=== PATIENT | male | born 1940 | race Caucasian/White ===

== ENCOUNTER → 2019-12-13 14:31 | Outpatient (BNVA) | payer MEDICARE, SELFPAY | PROVIDERS: PCP Internal Medicine; Visit Provider Urology | DX: R97.20 Elevated prostate specific antigen [PSA] (principal) | CPT/HCPCS: 99213 ==

== ENCOUNTER → 2020-12-26 09:11 | Outpatient (BNVA) | payer MEDICARE, SELFPAY | PROVIDERS: Visit Provider Urology | DX: R97.20 Elevated prostate specific antigen [PSA] (principal) | CPT/HCPCS: Q3014 ==

== ENCOUNTER → 2022-01-08 08:34 | Outpatient (BNVA) | payer MEDICARE, SELFPAY | PROVIDERS: PCP Internal Medicine; Visit Provider Urology | DX: R97.20 Elevated prostate specific antigen [PSA] (principal); I10 Essential (primary) hypertension | CPT/HCPCS: 99212 ==

== ENCOUNTER 2022-12-31 09:15 | Outpatient (AMB) | payer MEDICARE, SELFPAY ==
--- NOTE | 2022-12-31 09:20 | A.OFFVIS_ITS ---
Intake Intake Visit Reasons: 1yr PSA(set) Intake Note: Patient is Present for Follow Up Urology Medication: None Antibiotic Allergies: None Blood Thinners: Aspirin Pharmacy: [facility] Allergies shellfish Allergy (Unknown, Uncoded 12/31/22 09:24) hives Medication List - Last Reconciled 12/31/22 by Nathen Manrique MD aspirin 81 mg PO DAILY diltiazem HCl ER (Tiadylt ER) 360 mg PO DAILY finasteride 5 mg PO DAILY 90 days lisinopril 20 mg PO DAILY HPI HPI Comments History of Present Illness Details Harjinder is a pleasant male. He is seen for the following urologic condition - elevated PSA Rise in PSA to 8.7 No change in urinary symptoms Has previously had high PSA EMANI normal Start finasteride with repeat in 6 months Elevated PSA Historically PSA has run in the 4 to 6 range Discussed current PSA lower than previously Reinforced conditions under which PSA is optimized Continue to follow yearly with repeat PSA PSA 11/24 5.4 % 9.7, 12/25 3.4, 12/26 3.9, 12/27 8.7 13% Therapeutic plan follow-up 12 months PSA repeat [facility] Medical History HTN (hypertension) Family History Mother HTN (hypertension) Father Stroke Social History Alcohol intake: never Patient Tobacco Use Status: Current everyday Tobacco user Cigarettes Per Day: 8 Years Smoked: 55 Review of Systems Const Denies chills and Denies fever(s) Card Reports no additional complaints and Denies syncope Resp Denies cough GI Denies abdominal pain and Denies heartburn Reports as per HPI and Denies change in libido Neuro Denies syncope Psych Denies change in libido Endo Denies change in libido Physical Exam Const General: cooperative, healthy appearing, comfortable and no acute distress Orientation/consciousness: patient oriented x3 HEENT Face and sinus: Yes normal facial exam Mouth: moist mucous membranes Neck Neck: Yes normal visual inspection, Yes full ROM and Yes trachea midline Chest Chest palpation & inspection: normal inspection of the chest Resp Effort & Inspection: normal respiratory effort, able to speak in complete sentences and no respiratory distress GI Inspection: Yes normal to inspection Rectal Exam - Male: Yes normal sphincter tone and Yes prostate normal Male General Exam: Yes normal external exam Penis: normal penis and circumcised Meatus: meatus normal Scrotum: scrotum normal Testes: Testes normal Back/Spine/Pelvis Cervical Spine: normal cervical lordosis Thoracic/Lumbar Spine: thoracic and lumbar spine normal to inspection Skin General skin exam: no rashes or lesions noted Neuro General: patient oriented x3, gait normal, tone normal and moves all extremities Extrem General: Yes normal to inspection and Yes capillary refill normal Assessment & Plan Assessment & Plan (1) Elevated PSA: Code(s): R97.20 - Elevated prostate specific antigen [PSA] Plan Start finasteride Orders: Orders PSA,Total (Free>4and<10) 07/31/23 R97.20 - Elevated prostate specific antigen [PSA] Medications: New finasteride 5 mg PO DAILY 90 tabs 2RF 90 days R97.20 - Elevated prostate specific antigen [PSA] Patient Instructions: Imaging studies, laboratory and physical exam results were discussed and reviewed in detail. No major barriers to patient understanding were identified. An opportunity to ask questions regarding the treatment plan was provided. All questions were answered. The patient expressed understanding and agreement with the above treatment plan. The patient is aware they should contact our office by phone for worsening of their current condition or the appearance of new urologic symptoms. Compliance is encouraged with any medications and followup testing that is ordered. It is a privilege to participate in the urologic care of your patient. If you have any questions or concerns regarding treatment for the above conditions, or other urologic issues, please do not hesitate to contact me. The office telephone contact is [phone]. This note is constructed using voice recognition software. While every effort has been made to ensure accuracy manager customer service errors may have been included. Yours sincerely, Dr Nathen Manrique MD, [facility] - Urology Providers of Expert, Compassionate Care for the Genitourinary System Coding Level of Care Code Est Pt Level 4 (43898) Diagnoses Elevated PSA R97.20
== END 2022-12-31 09:55 | disposition home or self-care (01) ==
PROVIDERS: Visit Provider Urology
DX: R97.20 Elevated prostate specific antigen [PSA] (principal)
CPT/HCPCS: 99214

== ENCOUNTER → 2022-12-31 09:15 | Outpatient (BNVA) | payer MEDICARE, SELFPAY | PROVIDERS: Visit Provider Urology | DX: R97.20 Elevated prostate specific antigen [PSA] (principal) | CPT/HCPCS: 99212 ==

== ENCOUNTER 2023-11-09 15:33 | Outpatient (AMB) | payer MEDICARE, SELFPAY ==
--- NOTE | 2023-11-09 15:42 | A.OFFVIS_ITS ---
Intake Visit Reasons: Elevaed PSA Follow Up-(set) Intake Note: Patient is Present for Elevated PSA Urology Medication: Finasteride Antibiotic Allergies: None Blood Thinners: Aspirin Pharmacy: [facility] Required: No Allergies shellfish Allergy (Unknown, Uncoded 11/09/23 15:46) Hives HPI Comments Details: Harjinder is a pleasant male. He is seen for the following urologic condition - elevated PSA PSA down to 2.9 on finasteride Six-month follow-up repeat PSA tele Elevated PSA Historically PSA has run in the 4 to 6 range Discussed current PSA lower than previously Reinforced conditions under which PSA is optimized Continue to follow yearly with repeat PSA PSA 11/24 5.4 % 9.7, 12/25 3.4, 12/26 3.9, 12/27 8.7 13%, 09/27 2.9 Therapeutic plan follow-up 12 months PSA repeat [facility] Medical History HTN (hypertension) Family History Mother HTN (hypertension) Father Stroke Social History Alcohol intake: never Patient Tobacco Use Status: Current everyday Tobacco user Cigarettes Per Day: 8 Years Smoked: 55 Review of Systems Const Denies chills and Denies fever(s) Card Reports no additional complaints and Denies syncope Resp Denies cough GI Denies abdominal pain and Denies heartburn Reports as per HPI and Denies change in libido Neuro Denies syncope Psych Denies change in libido Endo Denies change in libido Physical Exam Const General: cooperative, healthy appearing, comfortable and no acute distress Orientation/consciousness: patient oriented x3 HEENT Face and sinus: Yes normal facial exam Mouth: moist mucous membranes Neck Neck: Yes normal visual inspection, Yes full ROM and Yes trachea midline Chest Chest palpation & inspection: normal inspection of the chest Resp Effort & Inspection: normal respiratory effort, able to speak in complete sentences and no respiratory distress GI Inspection: Yes normal to inspection Back/Spine/Pelvis Cervical Spine: normal cervical lordosis Thoracic/Lumbar Spine: thoracic and lumbar spine normal to inspection Skin General skin exam: no rashes or lesions noted Neuro General: patient oriented x3, gait normal, tone normal and moves all extremities Extrem General: Yes normal to inspection and Yes capillary refill normal Assessment & Plan Assessment & Plan (1) Elevated PSA: Code(s): R97.20 - Elevated prostate specific antigen [PSA] Category: Medical Plan Six-month follow-up PSA tele Orders: Orders Prostate Specific Antigen 6 Months R97.20 - Elevated prostate specific antigen [PSA] Patient Instructions: Imaging studies, laboratory and physical exam results were discussed and reviewed in detail. No major barriers to patient understanding were identified. An opportunity to ask questions regarding the treatment plan was provided. All questions were answered. The patient expressed understanding and agreement with the above treatment plan. The patient is aware they should contact our office by phone for worsening of their current condition or the appearance of new urologic symptoms. Compliance is encouraged with any medications and followup testing that is ordered. It is a privilege to participate in the urologic care of your patient. If you have any questions or concerns regarding treatment for the above conditions, or other urologic issues, please do not hesitate to contact me. The office telephone contact is [phone]. This note is constructed using voice recognition software. While every effort has been made to ensure accuracy air carrier operations inspector errors may have been included. Yours sincerely, Dr Nathen Manrique MD, [facility] - Urology Providers of Expert, Compassionate Care for the Genitourinary System Coding Level of Care Code Est Pt Level 3 (16242) Diagnoses Elevated PSA R97.20
== END 2023-11-09 16:25 | disposition home or self-care (01) ==
PROVIDERS: PCP Internal Medicine; Visit Provider Urology
DX: R97.20 Elevated prostate specific antigen [PSA] (principal)
CPT/HCPCS: 99213

== ENCOUNTER → 2023-11-09 15:33 | Outpatient (BNVA) | payer MEDICARE, SELFPAY | PROVIDERS: PCP Internal Medicine; Visit Provider Urology | DX: R97.20 Elevated prostate specific antigen [PSA] (principal) | CPT/HCPCS: 99212 ==

== ENCOUNTER 2024-06-26 10:15 | Outpatient (AMB) | payer MEDICARE, SELFPAY ==
--- NOTE | 2024-06-26 10:16 | MHC.OFFVIS ---
Intake Visit Reasons: 6M PSA(set) Intake Note: Harjinder 84 yr old male presents today for his appointment via video call for his 6 month follow up S/P PSA. Allergies shellfish Allergy (Unknown, Uncoded 11/09/23 15:46) Hives HPI Comments Details: Harjinder is a pleasant male. He is a patient of Dr. May. He is seen for the following urologic condition - elevated PSA Telemedicine Evaluation 15 min Consultation D[facility] Video PSA fallen further to 1.7 Stability Twelve month follow-up Elevated PSA Historically PSA has run in the 4 to 6 range Discussed current PSA lower than previously Reinforced conditions under which PSA is optimized Continue to follow yearly with repeat PSA PSA 11/24 5.4 % 9.7, 12/25 3.4, 12/26 3.9, 12/27 8.7 13%, 09/27 2.9, 05/01 1.7 Therapeutic plan follow-up 12 months PSA repeat [facility] Medical History HTN (hypertension) Family History Mother HTN (hypertension) Father Stroke Social History Alcohol intake: never Patient Tobacco Use Status: Current everyday Tobacco user Cigarettes Per Day: 8 Years Smoked: 55 Review of Systems Const All systems reviewed & are unremarkable except as noted in HPI and below Reports no additional complaints Resp Reports no additional complaints GI Reports no additional complaints Reports as per HPI Musc Reports no additional complaints Physical Exam Telemedicine evaluation Appropriate responses Regular breathing rate and rhythm HEENT Head: Yes normal to inspection Ears: hearing grossly normal bilaterally Eyes General: appearance normal, both eyes and all related structures Neck Neck: Yes normal visual inspection Chest Chest palpation & inspection: normal inspection of the chest Resp Effort & Inspection: normal respiratory effort and able to speak in complete sentences Telehealth Telehealth Telehealth Platform: [employer] Location of provider rendering services: practice address Location of patient: address on file Patient Identification confirmed using: Name, : Yes Telehealth method: video Patient verbally consented to treatment: Yes Patient verbally consented to billing insurance company: Yes Patient informed of any privacy concerns related to visit: Yes Minutes spent on Phone/Video with Pt.: 15 Assessment & Plan Assessment & Plan (1) Elevated PSA: Code(s): R97.20 - Elevated prostate specific antigen [PSA] Category: Medical (2) Nocturia more than twice per night: Code(s): R35.1 - Nocturia Category: Medical (3) Weak urinary stream: Code(s): R39.12 - Poor urinary stream Category: Medical Plan Twelve month follow-up PSA and PVR Orders: Orders Prostate Specific Antigen 12 Months R35.1 - Nocturia Medications: Refilled finasteride 5 mg PO DAILY 90 days 90 tabs 3RF R97.20 - Elevated prostate specific antigen [PSA] Patient Instructions: This note is constructed using voice recognition software. While every effort has been made to ensure accuracy associate professor of automation errors may have been included. Imaging studies, laboratory and physical exam results were discussed and reviewed in detail. No major barriers to patient understanding were identified. An opportunity to ask questions regarding the treatment plan was provided. All questions were answered. The patient expressed understanding and agreement with the above treatment plan. The patient is aware they should contact our office by phone for worsening of their current condition or the appearance of new urologic symptoms. Compliance is encouraged with any medications and followup testing that is ordered. It is a privilege to participate in the urologic care of your patient. If you have any questions or concerns regarding treatment for the above conditions, or other urologic issues, please do not hesitate to contact me. The office telephone contact is [phone]. Sincerely, Dr Nathen Manrique MD, [facility] - Urology Compassionate Specialist Care for the Genitourinary System Coding Level of Care Code Tele Est Pt Level 3 (41299) Complex EM visit Add On G2211 Diagnoses Elevated PSA R97.20 Nocturia more than twice per night R35.1 Weak urinary stream R39.12
--- OUTSIDE RECORDS SUMMARY | 2024-06-26 11:47 | XMS_ITS | Data Portability ---
Author Organization [place] - [facility] Address [address] [place] [id number] Care Team Providers Care Head Of Human Resources Name Role Phone LEIDA, SANJEBHAVANI Primary Care Provider Assessment No assessment recorded. Plan of Treatment Reminders Order Date Submit Date Provider Last Modified By Organization Details Last Modified Time Details Appointments None recorded. Lab None recorded. Referral None recorded. Procedures None recorded. Surgeries None recorded. Imaging XR, cervical spine, 4 or 5 view 2023 [address] [address], [address] [place] [address], [phone], 4 14:53:54 XR, hand, 3 or more view 2023 [address] [address], [address] [place] [address], [phone], 14:53:54 Medication Orders None recorded. Patient TargetsNo targets recorded. Patient InstructionsNo instructions recorded. Reason for Referral None Reported. Results Created Date Observation Date Name Description Value Unit Range Abnormal Flag Note LastModifiedBy Organization Detail LastModifiedTime 05/30/19 24 XR, hand, 3 or more view No observ ation record ed. [address] [place] [address], [phone], 05/30/2023 14:01:43 05/30/19 24 XR, cervi benita spine , 4 or 5 view No observ ation record ed. [address] [address] [address], [place], [address], 05/30/2023 14:21:33 Result Notes None recorded. Problems No Known Problems Procedures Surgical History Date Name Laterality Status Provider Name and Address Organization Details Recorded Time APutman CTS Right completed Yasmeen Hartman [place] - [facility] 06/16/2023 11:23:49 Imaging Results Imaging Date Name Status LastModified by Organiz ation Details LastModified Time 05/30/2023 XR, hand, 3 or more view completed [address] [address] [address], [place], [address], 05/30/2023 14:01:43 05/30/2023 XR, cervical spine, 4 or 5 view completed [address] [address] [address], [place], [address], 05/30/2023 14:21:33 Procedure Notes None recorded. Medical Equipment None Reported. Allergies Allergen ID Allergen Name Allergen Category Reaction Reaction Severity Criticality Documentation Date Start Date Code Code System Note Provider Name and Address Organization Details Recorded Time 251199 shellfish derived food,medi cation hives moderate Not available 04/05/2023 11802 UNK Not Available Not Available Not Available Medications Name Sig Start Date Stop Date Status Note LastModified by Organization Details LastModified Time tramadol 50 mg tablet TAKE 1 TABLET BY MOUTH EVERY 6 HOURS NEEDED active Not Available Not Available No t Available methylpredni solone 4 mg tablets in a dose pack FOLLOW PACKAGE DIRECTIONS active Not Available Not Available N ot Available ondansetron 4 mg disintegrati ng tablet DISSOLVE 1 TABLET ON THE TONGUE EVERY 6 HOURS NEEDED FOR NAUSEA active Not Available Not Available No t Available finasteride active Not Available Not A vailable Not Available amlodipine active Not Available Not Av ailable Not Available methylpredni solone active Not Available Not Available Not Available lisinopril active Not Available Not Av ailable Not Available Vitals None Recorded Social History Question Answer Notes LastModified by Organizat ion Details LastModified Time Tobacco Smoking Status Current Every Day Smoker Roxi kenny, [place] - [facility] 06/16/2023 11:03:51 Do You Have An Advance Directive? Yes Information not available 06/16/2023 What Is Your Level Of Alcohol Consumption? None Information not available 06/16/2023 Is Blood Transfusion Acceptable In An Emergency? Yes Information not available 06/16/2023 How Much Tobacco Do You Chew? None Information not available 06/16/2023 In The 14 Days Before Symptom Onset, Have You Had Close Contact With A Laboratory-confir med COVID-19 While That Case Was Ill? No Information not available 06/16/2023 In The 14 Days Before Symptom Onset, Have You Had Close Contact With A Person Who Is Under Investigation For COVID-19 While That Person Was Ill? No Information not available 06/16/2023 Have You Been To An Area Known To Be High Risk For COVID-19? No Information not available 06/16/2023 Do You Or Have You Ever Used E-cigarettes Or Vape? 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 No Information not available 06/16/2023 Have You Been Diagnosed With Vitamin D Or Calcium Deficiency? No Information not available 06/16/2023 Have You Used Antacids Continuously For More Than 6 Months? No Information not available 06/16/2023 Have You Used Steroids Daily For More Than 3 Months? No Information not available 06/16/2023 Do You Have A Medical Power Of [place]? Yes Information not available 06/16/2023 At What Age Did You Start Smoking Tobacco? 20 Information not available 06/16/2023 Do You Or Have You Ever Used Smokeless Tobacco? Never Used Smokeless Tobacco Information not available 06/16/2023 How Much Tobacco Do You Smoke? 0.25 PPD Information not available 06/16/2023 What Types Of Sporting Activities Do You Participate In? Golf Information not available 06/16/2023 Sex: Unknown Functional Status Question Answer Note LastModified by Organization D etails LastModified Time What is your exercise level? Moderate Information not available 06/16/2023 Mental Status None recorded. Family History Nothing Reported. Medical History Condition Response Arthritis Y Past Encounters Encounter ID Performer Location Encounter Start Date Encounter Closed Date Diagnosis/Indication Diagnosis SNOMED-CT Code Diagnosis ICD10 Code Diagnosis Note [id number] Bird Wu MD [address] [address] [place] [address] 04/05/2023 10:30:06 04/05/2023 11:15:49 Carpal tunnel syndrome 43108945 G56.01 Rt carpal tunnel syndrome.P t c/o numbness/t ingling in Rt MF & RF at night for ~1.5 wks. He states the pain will wake him up at night, but will resolve after standing and walking around. Pt reports seeing an outside provider who prescribed a Medrol dose pack for his symptoms 04/02/2023 . Pt states his symptoms have significan tly improved since taking the Medrol. He denies any numbness/t ingling at this time. Discussed treatment options ranging from nonoperati ve to operative and the risks/bene fits of each approach. We discussed bracing, medication s, injections , and carpal tunnel release.Af ter this discussion , the patient chose to proceed with conservati ve tx, including bracing x3 wks d/t improvemen t of symptoms at this time. Will consider a Rt CTS injection in the future if symptoms return.Pt shown a Rt wrist brace in office today.F/u prn. 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 Osteoarthr osis of the carpometacarpal joint of the thumb 64915926 M18.9 Carpal agustin miguel a syndrome 23592198 G56.01 Rt carpal tunnel syndrome.P t c/o numbness in his Rt hand during the day but it's worse at night, he states his hand will get very warm/throb and it'll wake him up numerous times during the night. Pt has been bracing for the past two months. Pt reports seeing an outside provider who prescribed a Medrol dose pack for his symptoms 04/02/2023 with great relief. Pt denies neck pain, and symptoms in his Lt hand or in feet.Pt taking meloxicam. Pt had two cervical herniated discs x20 years ago, couldn't use his Rt arm at the time but discs have atrophied since.Pro mmended an EMG and CTS injection vs referral to mental health program specialist for further tx/dx purposes to eval for cervical entrapment neuropathy . Pt reluctant to proceed w/ EMG d/t poor experience in the past with EMG.Discus sed treatment options ranging from nonoperati ve to operative and the risks/bene fits of each approach. We discussed bracing, medication s, injections , and carpal tunnel release.Af ter this discussion , the patient chose to proceed w/ considerin g his options and calling back with a decision.F /u prn. 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 M19.041 Neck pain 17848860 M54.2 XR results reveal C5-C6 DJD [id number] Bird Wu MD [place] [address] [facility] [place], [facility] [place] [address] 06/16/2023 10:59:03 06/16/2023 11:28:01 Pain in right hand [id number] 89204 M79.641 Neck pain 83455346 M54.2 Osteoarthr osis of the carpometacarpal joint of the thumb 76973040 M18.9 Carpal agustin miguel a syndrome 97432109 G56.01 Rt carpal tunnel syndrome.P t c/o numbness in his Rt hand during the day but it's worse at night, he states his hand will get very warm/throb and it'll wake him up numerous times during the night. Pt has been bracing for the past two months. Pt reports seeing an outside provider who prescribed a Medrol dose pack for his symptoms 04/02/2023 with great relief. Pt denies neck pain, and symptoms in his Lt hand or in feet.Pt taking meloxicam. Pt had two cervical herniated discs x20 years ago, couldn't use his Rt arm at the time but discs have atrophied since.Pro mmended an EMG and CTS injection vs referral to mental health program specialist for further tx/dx purposes to eval for cervical entrapment neuropathy . Pt reluctant to proceed w/ EMG d/t poor experience in the past with EMG.Discus sed treatment options ranging from nonoperati ve to operative and the risks/bene fits of each approach. We discussed bracing, medication s, injections , and carpal tunnel release.Af ter this discussion , the patient chose to proceed w/ Rt CTS injection. F/u in 3 weeks. Osteoarthr itis of metacarpophalangeal joint [id number] M19.901 [id number] Bird Wu MD [facility] [address] [facility] [place], [facility] [place] [address] 07/07/2023 10:32:22 07/07/2023 11:04:53 Pain in right hand [id number] 25392 M79.641 Neck pain 81852403 M54.2 Osteoarthr osis of the carpometacarpal joint of the thumb 55341492 M18.11 Carpal agustin miguel a syndrome 45945204 G56.01 Rt carpal tunnel syndrome.P t received Rt CTS injection on 06/16/23 w/ good relief. HE reports he still has numbness in tips of his fingers but within a week after injections his numbness has begun to reside & he reports his previous swelling is no longer occurring. [place] mid [place].Pt c/o numbness in his Rt hand during the day but it's worse at night, he states his hand will get very warm/throb and it'll wake him up numerous times during the night. Pt has been bracing for the past two months. Pt reports seeing an outside provider who prescribed a Medrol dose pack for his symptoms 04/02/2023 with great relief. Pt denies neck pain, and symptoms in his Lt hand or in feet.Pt taking meloxicam. Pt had two cervical herniated discs x20 years ago, couldn't use his Rt arm at the time but discs have atrophied since.Pro mmended carpal tunnel release as best approach d/t his age.Discus sed treatment options ranging from nonoperati ve to operative and the risks/bene fits of each approach. We discussed bracing, medication s, injections , and carpal tunnel release.Af ter this discussion , the patient chose to proceed w/ conservati ve treatment. F/u prn. Addendum:Rudy angelica called and now wants to proceed with RT CTR. We again went over the surgical plan and the expected postoperat alessandra course. I discussed the procedure and answered any questions. I have had a long discussion with the patient regarding treatment options, both conservati ve and surgical. At this point they have failed conservati ve management and would like to proceed with surgical treatment. Risks, benefits, and alternativ es to surgery including but not limited to the risks of anesthesia , post-opera tive infection, DVT, PE, damage to nerves, blood vessels, or tendons, continued pain, stiffness, adhesions, RSD, hardware failure, nonunion, failure to heal the repair, the need for additional procedures , and any unforeseen complicati ons. The patient understand s and accepts the risks and would like to proceed. Informed consent was obtained. Osteoarthr itis of metacarpophalangeal joint 522286618 M19.948 [id number] DORIE LOZOYA [address] [address] [address] [place] [address] 08/15/2023 09:21:02 08/15/2023 09:34:39 Follow-up orthopedic assessment [id number] Z47.89 DOS: 08/03/23Pt presents to clinic for 2 wk postoperat alessandra appointmen t for {{right* l eft}} CTR by Dr Wu.The y report they are doing well and have noticed significan t improvemen t in symptoms with less numbness/t ingling in their digits.Inc ision looks good with no drainage & minimal swelling. Discussed with patient that they may get the incision wet while showering but should not submerge the incision site in pool, hot tub, bath, etc.Explai tiffanie full relief of symptoms may take up to 1 year after surgery.Di scussed importance of easing into activity, with no heavy lifting, pushing, or pulling with surgical extremity for another 3-4 weeks.F/u prn. Health Concerns Section Related Observation LastModified by Organization Detai ls LastModified Time None Recorded Concern Status LastModified by Organization Details LastModified Time None Recorded Advance Directives Directive Y: Payers Encounter Date Sequence Insurance Name Policy Number Policy Grover Covered Member ID Grover Member ID Guarantor Name 04/05/2023 2 [place] [id number] Harjinder V Bourcier [id number] Harjinder V Bourcier 04/05/2023 1 [place] Harjinder V Bourcier [id number] Harjinder V Bourcier 05/30/2023 2 [place] [id number] Harjinder V Bourcier [id number] Harjinder V Bourcier 05/30/2023 1 [place] Harjinder V Bourcier [id number] Harjinder V Bourcier 06/16/2023 2 [place] [id number] Harjinder V Bourcier [id number] Harjinder V Bourcier 06/16/2023 1 [place] Harjinder V Bourcier [id number] 4 Harjinder V Bourcier 07/07/2023 2 [place] [id number] Harjinder V Bourcier [id number] Harjinder V Bourcier 07/07/2023 1 [place] Harjinder V Bourcier [id number] 4 Harjinder V Bourcier 08/15/2023 2 [place] [id number] Harjinder V Bourcier [id number] Ahrjinder V Bourcier 08/15/2023 1 [place] Harjinder V Bourcier [id number] 4 Harjinder V Bourcier Notes Date Note Type Note Provider Name and Address Organization Details Recorded Time 04/05/2023 text/html Hand/FingersRepo r tod bypatient.Locatio n:right Quality:burning; stabbing; numbness; tingling; improving Severity:mild Timing:recurrent Context:cannot identify Aggravating Factors:gripping; grasping; squeezing Associated Symptoms:numbness ;tingling Previous Surgery:none Prior Imaging:none Previous Injections:none Previous PT:none Pt states he has been taking medrol dose pack, and still has 2 days left to take but numbness/tingling has resolved so far with dose pack. Bird Wu MD [address] [place] [address] [address], [place], [address], [facility] 04/05/2023 13:38:37 05/30/2023 text/html Hand/FingersRepo r tod bypatient.Locatio n:right; 3-4 digit Quality:burning; stabbing; numbness; tingling; worsening Severity:mild Timing:recurrent Context:cannot identify Aggravating Factors:gripping; grasping; squeezing Associated Symptoms:numbness ;tingling Previous Surgery:none Prior Imaging:none Previous Injections:none Previous PT:none Pt has had 2 rounds of prednisone that seemed to help while he was taking it but as soon as complete pain returns and has increased swelling and MP jts at night. Bird Wu MD [address] [place] [address] [address], [place], [address], [facility] - [facility] 06/02/2023 07:56:22 06/16/2023 text/html Hand/FingersRepo r tod bypatient.Locatio n:right; 3-4 digit Quality:burning; stabbing; numbness; tingling; worsening Severity:mild Timing:recurrent Context:cannot identify Aggravating Factors:gripping; grasping; squeezing Associated Symptoms:numbness ;tingling Previous Surgery:none Prior Imaging:none Previous Injections:none Previous PT:none Pt has had 2 rounds of prednisone that seemed to help while he was taking it but as soon as complete pain returns and has increased swelling and MP jts at night. Bird Wu MD [address] [place] [address] [address], [place], [address], [facility] - [facility] 06/17/2023 09:29:24 07/07/2023 text/html Hand/FingersRepo r tod bypatient.Locatio n:right; 3-4 digit Quality:burning; stabbing; numbness; tingling; worsening Severity:mild Timing:recurrent Context:cannot identify Aggravating Factors:lifting; carrying; pushing/pulling; gripping; grasping; squeezing; ROM Associated Symptoms:numbness ;tingling;swellin g;grinding Previous Surgery:none Prior Imaging:x ray Previous Injections:% improvement:; Rt CTS injection on 06/16/23 Previous PT:none f/u Rt CTS injection on 06/16/23 helped a lot especially at night Bird Wu MD [address] [address] [address], [place], [address], [facility] - [facility] 07/25/2023 11:52:32 08/15/2023 text/html Post-OpReported bypatient.Onset/T imin08/03/23 Quality:RT CTRNotes:Strips and suture removal today DORIE LOZOYA [address] [address] [address], [place], [address], [place] [facility] 08/15/2023 09:54:08
== END 2024-06-26 11:00 | disposition home or self-care (01) ==
LOC: HO.HUSH 10:15
PROVIDERS: PCP Internal Medicine; Visit Provider Urology
DX: R97.20 Elevated prostate specific antigen [PSA] (principal); R35.1 Nocturia; R39.12 Poor urinary stream
CPT/HCPCS: 99213; G2211

== ENCOUNTER → 2024-06-26 10:15 | Outpatient (BNVA) | payer MEDICARE, SELFPAY | PROVIDERS: PCP Internal Medicine; Visit Provider Urology ==